=== PATIENT | female | born 1950 | race Caucasian/White ===

== ENCOUNTER → 2017-02-02 | Outpatient (CLI) | payer MEDICARE, MEDICAID ==
[~2017-02-02] MED LIST: ASCO500C2 PO; ASPI-496 PO; CALC0.254 PO; DOCU-30 PO; ERGO500017 PO; ESOM40CA PO; FAMO40TA4 PO; FURO20TA3 PO; HYDR2TAB13 PO; LEVO137T22 PO; LIOT5TAB3 PO; LORA10TA62 PO; METH500T97 PO; MONT10TA9 PO; OMEP-110 PO; ONDA4TAB10 PO; OXYC10TA32 PO; OXYC10TA6 PO; OXYC15TA PO; PANT20TA3 PO; POTA20TA91 PO; PROM25TA10 PO; RIVA15TA PO; SLOW MAG PO; VERA360C2 PO; VITA400C40 PO
[2017-02-02 12:11] LABS: HEMOGLOBIN 13.2 g/dL (11.7-16.4)
[2017-02-02 12:25] LABS: ASPARTATE AMINO TRANSFERASE 13 U/L (15-37); BLOOD UREA NITROGEN 15 mg/dL (7-18)
== END | disposition home or self-care (01) ==
LOC: STAR 10:08
PROVIDERS: ATTEND Orthopaedic Surgery
DX: Z01.818 Encounter for other preprocedural examination (principal); M17.12 Unilateral primary osteoarthritis, left knee
CPT/HCPCS: 36415; 80053; 81003; 85025; 87081; 93005

== ENCOUNTER 2017-02-14 06:42 | Inpatient (IN) | payer MEDICARE, MEDICAID ==
[2017-02-02 10:58] VITALS: BP 142/66
[~2017-02-14] VITALS: Ht 160 cm; Wt 78.3 kg
[2017-02-14] MEDS ORDERED: ROPIvacaine/PF 0.2%, 20 ML ONE (06:45)
[2017-02-14] MEDS ORDERED: KETOROLAC 60 MG/2 ML ONE (06:45)
[2017-02-14] MEDS ORDERED: TRANEXAMIC ACID 100 MG/ML, 10ML ONE (06:45)
[2017-02-14] MEDS ORDERED: SODIUM CHLORIDE 0.9% 50 ML ONE (06:45)
[2017-02-14] MEDS ORDERED: EPINEPHRINE 1 MG/ML, 1ML ONE (06:45)
[2017-02-14] MEDS ORDERED: FENTANYL PF 250 MCG/5ML ONE (07:48)
[2017-02-14] MEDS ORDERED: MIDAZOLAM 1 MG/ML, 2ML ONE (07:48)
[2017-02-14] MEDS ORDERED: BUPIVACAINE/PF-EPI 0.5% 1:200K ONE (08:44)
[2017-02-14] MEDS ORDERED: CEFAZOLIN 1,000 MG ONE (09:10)
[2017-02-14] MEDS ORDERED: EPHEDRINE 50 MG/ML, 1ML ONE (09:10)
[2017-02-14] MEDS ORDERED: LACTATED RINGERS 1,000 ML IV SCH (10:00)
[2017-02-14] MEDS ORDERED: ACETAMINOPHEN 325 MG TABLET PO PRN (11:00)
[2017-02-14] MEDS ORDERED: METOCLOPRAMIDE 5 MG/ML, 2ML IV PRN (11:00)
[2017-02-14] MEDS ORDERED: OXYcodone 5 MG/5 ML ORAL.SOL UDC PO PRN (11:00)
[2017-02-14] MEDS ORDERED: ONDANSETRON 2MG/ML, 2ML IVPush PRN (11:00)
[2017-02-14] MEDS ORDERED: LABETALOL 5MG/ML, 20ML IV PRN (11:00)
[2017-02-14] MEDS ORDERED: OXYcodone IR 5MG TABLET PO PRN (11:30)
[2017-02-14] MEDS ORDERED: ALUMINUM/MAG/SIMETHICONE 30 ML UDC PO PRN (11:30)
[2017-02-14] MEDS ORDERED: SCOPOLAMINE PATCH, 1.5MG PATCH.TD72 TD PRN (11:30)
[2017-02-14] MEDS ORDERED: DIPHENHYDRAMINE 50 MG CAPSULE PO PRN (11:30)
[2017-02-14] MEDS ORDERED: TRANEXAMIC ACID 2,000 MG in SODIUM CHLORIDE 0.9% 100 ML IVPB ONE (11:30)
[2017-02-14] MEDS ORDERED: BISACODYL 10 MG SUPP PR PRN (11:30)
[2017-02-14] MEDS ORDERED: SENNA/DOCUSATE TABLET PO PRN (11:30)
[2017-02-14] MEDS ORDERED: PROMETHAZINE 12.5 MG SUPP PR PRN (11:30)
[2017-02-14] MEDS ORDERED: SCOPOLAMINE PATCH, 1.5MG PATCH.TD72 TD SCH (11:30)
[2017-02-14] MEDS ORDERED: MAGNESIUM HYDROXIDE 8%, 30ML UDC PO PRN (11:30)
[2017-02-14] MEDS: OXYcodone IR 5MG TABLET PO SCH ×4 (11:30→23:30)
[2017-02-14] MEDS ORDERED: DIAZEPAM 5 MG TABLET PO PRN (11:30)
[2017-02-14] MEDS ORDERED: ZOLPIDEM 5MG TABLET PO PRN (11:30)
[2017-02-14] MEDS: ACETAMINOPHEN 650 MG/20.3 ML UDC PO SCH ×4 (11:30→23:30)
[2017-02-14] MEDS ORDERED: ONDANSETRON 4 MG TABLET PO PRN (11:30)
[2017-02-14] MEDS ORDERED: KETOROLAC 30 MG/1 ML ONE (11:41)
[2017-02-14] MEDS ORDERED: ACETAMINOPHEN 325 MG TABLET ONE (11:41)
[2017-02-14] MEDS ORDERED: FENTANYL PF 100 MCG/2ML ONE ×2 (11:41→13:15)
[2017-02-14] MEDS ORDERED: ONDANSETRON 2MG/ML, 2ML ONE (11:41)
[2017-02-14] MEDS ORDERED: OXYcodone 5 MG/5 ML ORAL.SOL UDC ONE (11:42)
[2017-02-14] MEDS: FENTANYL PF 100 MCG/2ML IV PRN ×3 (11:51→13:26)
[2017-02-14] MEDS ORDERED: METOCLOPRAMIDE 5 MG/ML, 2ML ONE (11:58)
[2017-02-14] MEDS ORDERED: hydrALAzine 20 MG/ML, 1ML ONE (12:02)
[2017-02-14] MEDS: hydrALAzine 20 MG/ML, 1ML IV PRN ×2 (12:06→12:32)
[2017-02-14] MEDS ORDERED: HYDROmorphone 2 MG/ML, 1ML ONE (12:50)
[2017-02-14] MEDS: HYDROmorphone 1 MG/ML, 1ML IV PRN ×3 (12:52→21:18)
[2017-02-14 13:50] VITALS: BP_SYST 164; BP_SYST 167; BP_DIAS 73; BP_DIAS 77
[2017-02-14] MEDS: PROMETHAZINE 25 MG/ML, 1ML IM PRN ×2 (14:14→19:19)
[2017-02-14] MEDS: SODIUM CHLORIDE 0.9% 1,000 ML IV SCH ×2 (14:17→21:32)
[2017-02-14] MEDS: TAMSULOSIN 0.4 MG CAP.ER.24H PO SCH (14:39)
[2017-02-14] MEDS: CEFAZOLIN PMX 2GM/50ML 50 ML IVPB SCH (18:21)
[2017-02-14 20:50] VITALS: BP 150/68
[2017-02-14] MEDS: ONDANSETRON 2MG/ML, 2ML IV PRN (21:16)
[2017-02-14] MEDS: DOCUSATE 100 MG CAPSULE PO SCH (21:32)
[2017-02-14] MEDS: PREGABALIN 75 MG CAPSULE PO SCH (21:32)
[2017-02-15] MEDS: HYDROmorphone 1 MG/ML, 1ML IV PRN ×2 (00:44→05:12)
[2017-02-15] MEDS: PROMETHAZINE 25 MG/ML, 1ML IM PRN ×4 (00:53→23:57)
[2017-02-15 02:00] VITALS: BP 152/78
[2017-02-15] MEDS: CEFAZOLIN PMX 2GM/50ML 50 ML IVPB SCH (02:31)
[2017-02-15] MEDS: OXYcodone IR 5MG TABLET PO SCH ×6 (03:30→23:06)
[2017-02-15] MEDS: ACETAMINOPHEN 650 MG/20.3 ML UDC PO SCH ×5 (03:30→20:45)
[2017-02-15 04:15] VITALS: BP 147/77
[2017-02-15] MEDS: ONDANSETRON 2MG/ML, 2ML IV PRN (05:12)
[2017-02-15] MEDS: SODIUM CHLORIDE 0.9% 1,000 ML IV SCH ×4 (05:12→23:56)
[2017-02-15] MEDS ORDERED: DEXAMETHASONE 4 MG/ML, 1ML IVPush SCH (06:00)
[2017-02-15] MEDS ORDERED: SODIUM CHLORIDE 0.9% 1,000ML IVBOLUS ONE (08:00)
[2017-02-15 09:00] VITALS: BP 152/78
[2017-02-15] MEDS: RIVAROXABAN 10 MG TABLET PO SCH (09:07)
[2017-02-15] MEDS: PREGABALIN 75 MG CAPSULE PO SCH ×2 (10:13→21:05)
[2017-02-15] MEDS: MULTIVITAMINS/MINERALS TABLET PO SCH (10:13)
[2017-02-15] MEDS: TAMSULOSIN 0.4 MG CAP.ER.24H PO SCH (10:13)
[2017-02-15] MEDS: DOCUSATE 100 MG CAPSULE PO SCH ×2 (10:13→21:05)
[2017-02-15] MEDS: KETOROLAC 30 MG/1 ML IV SCH ×2 (11:42→20:45)
[2017-02-15 15:59] VITALS: BP 143/63
[2017-02-15 20:30] VITALS: BP 150/72
[2017-02-16] MEDS: ACETAMINOPHEN 650 MG/20.3 ML UDC PO SCH ×4 (00:45→12:19)
[2017-02-16 01:14] VITALS: BP 138/52
[2017-02-16] MEDS: OXYcodone IR 5MG TABLET PO SCH ×5 (03:06→22:57)
[2017-02-16] MEDS: ONDANSETRON 2MG/ML, 2ML IV PRN ×3 (03:37→16:14)
[2017-02-16] MEDS: KETOROLAC 30 MG/1 ML IV SCH ×3 (04:48→23:16)
[2017-02-16] MEDS: PROMETHAZINE 25 MG/ML, 1ML IM PRN (05:59)
[2017-02-16 06:37] VITALS: BP 175/90
[2017-02-16] MEDS: SODIUM CHLORIDE 0.9% 1,000 ML IV SCH ×3 (07:10→19:40)
[2017-02-16] MEDS: METOCLOPRAMIDE 5 MG/ML, 2ML IVPush PRN ×2 (07:59→14:47)
[2017-02-16 09:58] LABS: ASPARTATE AMINO TRANSFERASE 20 U/L (15-37); BLOOD UREA NITROGEN 17 mg/dL (7-18)
[2017-02-16] MEDS: DOCUSATE 100 MG CAPSULE PO SCH ×2 (10:15→22:57)
[2017-02-16] MEDS: RIVAROXABAN 10 MG TABLET PO SCH (10:15)
[2017-02-16] MEDS: MULTIVITAMINS/MINERALS TABLET PO SCH (10:15)
[2017-02-16] MEDS: TAMSULOSIN 0.4 MG CAP.ER.24H PO SCH (10:15)
[2017-02-16] MEDS: PREGABALIN 75 MG CAPSULE PO SCH ×2 (10:15→22:57)
[2017-02-16 12:31] VITALS: BP 155/77
[2017-02-16] MEDS ORDERED: ALUMINUM/MAG/SIMETHICONE 30 ML UDC PO PRN (13:30)
[2017-02-16] MEDS ORDERED: ACETAMINOPHEN 650 MG/20.3 ML UDC PO PRN (13:30)
[2017-02-16] MEDS ORDERED: ONDANSETRON ODT 4 MG PO PRN (13:30)
[2017-02-16] MEDS ORDERED: PROMETHAZINE 25 MG/ML, 1ML IM PRN (13:30)
[2017-02-16] MEDS ORDERED: SENNA/DOCUSATE TABLET PO PRN (13:30)
[2017-02-16] MEDS ORDERED: BISACODYL 10 MG SUPP PR PRN (13:30)
[2017-02-16] MEDS ORDERED: DIPHENHYDRAMINE 50 MG CAPSULE PO PRN (13:30)
[2017-02-16] MEDS: SCOPOLAMINE PATCH, 1.5MG PATCH.TD72 TD SCH (13:30)
[2017-02-16] MEDS ORDERED: ZOLPIDEM 5MG TABLET PO PRN (13:30)
[2017-02-16] MEDS ORDERED: MAGNESIUM HYDROXIDE 8%, 30ML UDC PO PRN (13:30)
[2017-02-16] MEDS ORDERED: PROMETHAZINE 12.5 MG SUPP PR PRN (13:30)
[2017-02-16] MEDS ORDERED: DIAZEPAM 5 MG TABLET PO PRN (13:30)
[2017-02-16] MEDS ORDERED: Tramadol Hcl PO (13:32)
[2017-02-16] MEDS ORDERED: RIVA10TA PO (13:32)
[2017-02-16] MEDS ORDERED: ONDA-39 PO (13:32)
[2017-02-16] MEDS ORDERED: OXYC5TAB3 PO (13:32)
[2017-02-16] MEDS: D5%-0.45% NACL 1,000 ML IV SCH ×2 (14:53→23:19)
[2017-02-16] MEDS ORDERED: OMNIPAQUE 350 MG/ML, 100ML BOTTLE ONE (19:08)
[2017-02-16 20:00] VITALS: BP 148/82
[2017-02-16] MEDS: SODIUM CHLORIDE FLUSH 10ML SYR IVF SCH (21:40)
[2017-02-16] MEDS: HYDROmorphone 1 MG/ML, 1ML IV PRN (23:16)
[2017-02-16] MEDS ORDERED: BENZOCAINE AEROSOL SPRAY 20%, 60ML TP ONE (23:30)
[2017-02-17 01:40] VITALS: BP 142/86
[2017-02-17] MEDS: SODIUM CHLORIDE 0.9% 1,000 ML IV SCH ×4 (02:24→22:20)
[2017-02-17] MEDS: OXYcodone IR 5MG TABLET PO SCH ×6 (02:24→22:00)
[2017-02-17] MEDS: FAMOTIDINE 20 MG/2 ML IVPush SCH ×3 (02:24→20:34)
[2017-02-17 05:56] LABS: BLOOD UREA NITROGEN 20 mg/dL (7-18)
[2017-02-17] MEDS ORDERED: DEXAMETHASONE 4 MG/ML, 1ML IVPush SCH (06:00)
[2017-02-17] MEDS: D5%-0.45% NACL 1,000 ML IV SCH ×2 (06:13→22:27)
[2017-02-17 07:32] VITALS: BP 121/74
[2017-02-17] MEDS ORDERED: POTASSIUM CHLORIDE 40 MEQ in SODIUM CHLORIDE 0.9% 500 ML IV ONE (08:00)
[2017-02-17] MEDS: DOCUSATE 100 MG CAPSULE PO SCH ×2 (09:11→21:00)
[2017-02-17] MEDS: MULTIVITAMINS/MINERALS TABLET PO SCH (09:12)
[2017-02-17] MEDS: PREGABALIN 75 MG CAPSULE PO SCH ×2 (09:12→21:00)
[2017-02-17] MEDS: TAMSULOSIN 0.4 MG CAP.ER.24H PO SCH (09:12)
[2017-02-17] MEDS: SODIUM CHLORIDE FLUSH 10ML SYR IVF SCH ×2 (09:49→20:53)
[2017-02-17] MEDS: HYDROmorphone 1 MG/ML, 1ML IV PRN ×5 (10:41→23:30)
[2017-02-17] MEDS ORDERED: SCOPOLAMINE PATCH, 1.5MG PATCH.TD72 TD PRN (11:30)
[2017-02-17] MEDS ORDERED: ENOXAPARIN 60 MG/0.6 ML SQ SCH (13:00)
[2017-02-17 14:19] VITALS: BP 109/75
[2017-02-17] MEDS: DIAZEPAM 5 MG/ML, 2ML IVPush PRN (15:38)
[2017-02-17 20:04] VITALS: BP 125/65
[2017-02-18] MEDS: OXYcodone IR 5MG TABLET PO SCH ×6 (01:31→22:00)
[2017-02-18] MEDS: ENOXAPARIN 30 MG/0.3 ML SQ SCH ×2 (01:42→13:31)
[2017-02-18] MEDS: HYDROmorphone 1 MG/ML, 1ML IV PRN ×5 (01:42→20:09)
[2017-02-18 02:10] VITALS: BP 132/59
[2017-02-18 06:14] LABS: BLOOD UREA NITROGEN 14 mg/dL (7-18)
[2017-02-18] MEDS: SODIUM CHLORIDE FLUSH 10ML SYR IVF SCH ×2 (07:41→20:13)
[2017-02-18] MEDS: TAMSULOSIN 0.4 MG CAP.ER.24H PO SCH (07:42)
[2017-02-18] MEDS: PREGABALIN 75 MG CAPSULE PO SCH ×2 (07:42→21:00)
[2017-02-18] MEDS: DOCUSATE 100 MG CAPSULE PO SCH ×2 (07:42→21:00)
[2017-02-18] MEDS: MULTIVITAMINS/MINERALS TABLET PO SCH (07:42)
[2017-02-18 07:45] VITALS: BP 128/80
[2017-02-18] MEDS: D5%-0.45% NACL 1,000 ML IV SCH ×2 (07:50→20:17)
[2017-02-18] MEDS: FAMOTIDINE 20 MG/2 ML IVPush SCH ×2 (08:16→21:59)
[2017-02-18] MEDS ORDERED: POTASSIUM CHLORIDE 40 MEQ in SODIUM CHLORIDE 0.9% 500 ML IV ONE (11:00)
[2017-02-18] MEDS ORDERED: BISACODYL 10 MG SUPP PR ONE (11:30)
[2017-02-18] MEDS ORDERED: METOCLOPRAMIDE 5 MG/ML, 2ML IVPush PRN (11:30)
[2017-02-18 14:35] VITALS: BP 126/74
[2017-02-18 19:51] VITALS: BP 143/76
[2017-02-19] MEDS: ENOXAPARIN 30 MG/0.3 ML SQ SCH ×3 (01:28→23:06)
[2017-02-19] MEDS: DIAZEPAM 5 MG/ML, 2ML IVPush PRN ×2 (01:38→09:28)
[2017-02-19] MEDS: OXYcodone IR 5MG TABLET PO SCH ×7 (01:40→22:00)
[2017-02-19] MEDS: HYDROmorphone 1 MG/ML, 1ML IV PRN ×5 (03:41→22:53)
[2017-02-19] MEDS: D5%-0.45% NACL 1,000 ML IV SCH ×3 (03:44→22:57)
[2017-02-19 04:34] VITALS: BP 141/70
[2017-02-19 05:27] LABS: BLOOD UREA NITROGEN 10 mg/dL (7-18)
[2017-02-19 06:53] VITALS: BP 176/88
[2017-02-19] MEDS: MULTIVITAMINS/MINERALS TABLET PO SCH (07:52)
[2017-02-19] MEDS: TAMSULOSIN 0.4 MG CAP.ER.24H PO SCH (07:52)
[2017-02-19] MEDS: DOCUSATE 100 MG CAPSULE PO SCH ×2 (07:52→23:04)
[2017-02-19] MEDS: PREGABALIN 75 MG CAPSULE PO SCH ×2 (07:52→23:04)
[2017-02-19] MEDS: SODIUM CHLORIDE FLUSH 10ML SYR IVF SCH ×2 (08:16→22:59)
[2017-02-19] MEDS: FAMOTIDINE 20 MG/2 ML IVPush SCH ×2 (09:28→22:59)
[2017-02-19 09:30] VITALS: BP 157/73
[2017-02-19] MEDS ORDERED: POTASSIUM CHLORIDE 40 MEQ in SODIUM CHLORIDE 0.9% 500 ML IV ONE (10:00)
[2017-02-19] MEDS: METOCLOPRAMIDE 5 MG/ML, 2ML IVPush SCH ×3 (11:40→22:57)
[2017-02-19] MEDS: POLYETHYLENE GLYCOL 17 GM PACKET NG SCH (11:40)
[2017-02-19] MEDS: SCOPOLAMINE PATCH, 1.5MG PATCH.TD72 TD SCH (13:30)
[2017-02-19 13:40] VITALS: BP 157/80
[2017-02-19 21:52] VITALS: BP 153/79
[2017-02-20] MEDS: OXYcodone IR 5MG TABLET PO SCH ×6 (01:46→22:00)
[2017-02-20] MEDS: HYDROmorphone 1 MG/ML, 1ML IV PRN ×6 (01:55→20:47)
[2017-02-20] MEDS: METOCLOPRAMIDE 5 MG/ML, 2ML IVPush SCH ×4 (04:35→23:25)
[2017-02-20 04:50] VITALS: BP 123/66
[2017-02-20 04:53] LABS: BLOOD UREA NITROGEN 6 mg/dL (7-18)
[2017-02-20] MEDS: D5%-0.45% NACL 1,000 ML IV SCH ×2 (06:44→17:57)
[2017-02-20 06:48] VITALS: BP 143/70
[2017-02-20] MEDS: POLYETHYLENE GLYCOL 17 GM PACKET NG SCH (09:03)
[2017-02-20] MEDS: FAMOTIDINE 20 MG/2 ML IVPush SCH ×2 (09:03→20:46)
[2017-02-20] MEDS: SODIUM CHLORIDE FLUSH 10ML SYR IVF SCH ×2 (09:03→20:52)
[2017-02-20] MEDS: DOCUSATE 100 MG CAPSULE PO SCH ×2 (09:05→20:48)
[2017-02-20] MEDS: PREGABALIN 75 MG CAPSULE PO SCH ×2 (09:05→20:46)
[2017-02-20] MEDS: TAMSULOSIN 0.4 MG CAP.ER.24H PO SCH (09:05)
[2017-02-20] MEDS: MULTIVITAMINS/MINERALS TABLET PO SCH (09:22)
[2017-02-20] MEDS: ENOXAPARIN 30 MG/0.3 ML SQ SCH ×2 (11:43→23:27)
[2017-02-20 13:42] VITALS: BP 139/70
[2017-02-20 20:02] VITALS: BP 123/67
[2017-02-21] MEDS: HYDROmorphone 1 MG/ML, 1ML IV PRN ×8 (00:42→22:09)
[2017-02-21 00:50] VITALS: BP 129/76
[2017-02-21] MEDS: OXYcodone IR 5MG TABLET PO SCH ×6 (02:00→22:00)
[2017-02-21] MEDS: D5%-0.45% NACL 1,000 ML IV SCH ×2 (03:49→16:17)
[2017-02-21 05:44] LABS: BLOOD UREA NITROGEN 4 mg/dL (7-18)
[2017-02-21] MEDS: METOCLOPRAMIDE 5 MG/ML, 2ML IVPush SCH ×3 (05:44→19:51)
[2017-02-21] MEDS: FAMOTIDINE 20 MG/2 ML IVPush SCH ×2 (07:24→21:02)
[2017-02-21] MEDS: SODIUM CHLORIDE FLUSH 10ML SYR IVF SCH ×2 (07:24→21:03)
[2017-02-21 08:37] VITALS: BP 106/54
[2017-02-21] MEDS: POLYETHYLENE GLYCOL 17 GM PACKET NG SCH (09:00)
[2017-02-21] MEDS: DOCUSATE 100 MG CAPSULE PO SCH ×2 (09:37→21:00)
[2017-02-21] MEDS: TAMSULOSIN 0.4 MG CAP.ER.24H PO SCH (09:38)
[2017-02-21] MEDS: MULTIVITAMINS/MINERALS TABLET PO SCH (09:38)
[2017-02-21] MEDS: PREGABALIN 75 MG CAPSULE PO SCH ×2 (09:38→21:02)
[2017-02-21] MEDS: ONDANSETRON 2MG/ML, 2ML IV PRN (10:19)
[2017-02-21] MEDS: ENOXAPARIN 30 MG/0.3 ML SQ SCH ×2 (11:28→23:57)
[2017-02-21 13:35] VITALS: BP 138/79
[2017-02-21 19:32] VITALS: BP 141/84
[2017-02-22] MEDS: OXYcodone IR 5MG TABLET PO SCH ×6 (02:00→21:42)
[2017-02-22] MEDS: METOCLOPRAMIDE 5 MG/ML, 2ML IVPush SCH ×4 (02:13→21:50)
[2017-02-22 03:25] VITALS: BP 130/84
[2017-02-22] MEDS: HYDROmorphone 1 MG/ML, 1ML IV PRN ×4 (05:16→21:38)
[2017-02-22 05:21] LABS: BLOOD UREA NITROGEN 2 mg/dL (7-18)
[2017-02-22] MEDS: D5%-0.45% NACL 1,000 ML IV SCH (05:22)
[2017-02-22] MEDS: FAMOTIDINE 20 MG/2 ML IVPush SCH ×2 (08:01→21:50)
[2017-02-22] MEDS: MULTIVITAMINS/MINERALS TABLET PO SCH (09:00)
[2017-02-22] MEDS: TAMSULOSIN 0.4 MG CAP.ER.24H PO SCH (09:00)
[2017-02-22] MEDS: PREGABALIN 75 MG CAPSULE PO SCH ×2 (09:00→21:00)
[2017-02-22] MEDS: SODIUM CHLORIDE FLUSH 10ML SYR IVF SCH ×2 (09:00→21:38)
[2017-02-22] MEDS: POLYETHYLENE GLYCOL 17 GM PACKET NG SCH (09:00)
[2017-02-22] MEDS: DOCUSATE 100 MG CAPSULE PO SCH ×2 (09:00→21:00)
[2017-02-22 09:34] VITALS: BP 117/70
[2017-02-22] MEDS: ENOXAPARIN 30 MG/0.3 ML SQ SCH (12:11)
[2017-02-22] MEDS: SCOPOLAMINE PATCH, 1.5MG PATCH.TD72 TD SCH (13:30)
[2017-02-22 15:04] VITALS: BP 132/66
[2017-02-22] MEDS ORDERED: NEOSPORIN OINT, 15GM TP PRN ×2 (15:30→15:37)
[2017-02-22] MEDS: NEOSPORIN OINT, 15GM TP PRN (18:05)
[2017-02-22 18:31] VITALS: BP 151/81
[2017-02-23] MEDS: ENOXAPARIN 30 MG/0.3 ML SQ SCH ×3 (00:01→23:45)
[2017-02-23] MEDS: HYDROmorphone 1 MG/ML, 1ML IV PRN ×3 (01:08→07:44)
[2017-02-23 01:15] VITALS: BP 152/77
[2017-02-23] MEDS: OXYcodone IR 5MG TABLET PO SCH ×3 (02:00→10:00)
[2017-02-23] MEDS: METOCLOPRAMIDE 5 MG/ML, 2ML IVPush SCH ×4 (02:23→20:44)
[2017-02-23] MEDS: POLYETHYLENE GLYCOL 17 GM PACKET NG SCH (07:36)
[2017-02-23] MEDS: DOCUSATE 100 MG CAPSULE PO SCH ×2 (07:36→20:48)
[2017-02-23] MEDS: MULTIVITAMINS/MINERALS TABLET PO SCH (07:37)
[2017-02-23] MEDS: PREGABALIN 75 MG CAPSULE PO SCH ×2 (07:37→20:48)
[2017-02-23] MEDS: TAMSULOSIN 0.4 MG CAP.ER.24H PO SCH (07:37)
[2017-02-23] MEDS: FAMOTIDINE 20 MG/2 ML IVPush SCH ×2 (07:37→20:44)
[2017-02-23] MEDS: SODIUM CHLORIDE FLUSH 10ML SYR IVF SCH ×2 (07:38→20:44)
[2017-02-23 09:58] VITALS: BP 141/87
[2017-02-23] MEDS: NEOSPORIN OINT, 15GM TP PRN (14:44)
[2017-02-23 14:52] VITALS: BP 128/52
[2017-02-23] MEDS ORDERED: HYDROmorphone 1 MG/ML, 1ML IV PRN (15:30)
[2017-02-23] MEDS: OXYcodone IR 5MG TABLET PO PRN ×2 (18:30→22:59)
[2017-02-23 18:55] VITALS: BP 151/80
[2017-02-24] MEDS: METOCLOPRAMIDE 5 MG/ML, 2ML IVPush SCH ×2 (03:39→09:01)
[2017-02-24 03:52] VITALS: BP 154/75
[2017-02-24] MEDS: OXYcodone IR 5MG TABLET PO PRN ×3 (04:00→13:11)
[2017-02-24 08:36] VITALS: BP 104/72
[2017-02-24] MEDS: POLYETHYLENE GLYCOL 17 GM PACKET NG SCH (09:00)
[2017-02-24] MEDS: DOCUSATE 100 MG CAPSULE PO SCH (09:01)
[2017-02-24] MEDS: PREGABALIN 75 MG CAPSULE PO SCH (09:01)
[2017-02-24] MEDS: MULTIVITAMINS/MINERALS TABLET PO SCH (09:01)
[2017-02-24] MEDS: SODIUM CHLORIDE FLUSH 10ML SYR IVF SCH (09:01)
[2017-02-24] MEDS: FAMOTIDINE 20 MG/2 ML IVPush SCH (09:01)
[2017-02-24] MEDS: TAMSULOSIN 0.4 MG CAP.ER.24H PO SCH (09:01)
[2017-02-24] MEDS ORDERED: METOCLOPRAMIDE 10MG TABLET PO SCH (11:00)
[2017-02-24] MEDS: ENOXAPARIN 30 MG/0.3 ML SQ SCH (11:53)
[2017-02-24 12:33] VITALS: BP 157/78
[2017-02-24] MEDS ORDERED: OxyconTIN ER 10 MG TAB.ER PO SCH (15:30)
[2017-02-24] MEDS ORDERED: OXYC30TA PO (15:45)
[2017-02-24] MEDS ORDERED: OXYC10TA32 PO (15:45)
[2017-02-24] MEDS ORDERED: OXYcodone IR 5MG TABLET PO PRN (17:30)
== END 2017-02-24 16:34 | DRG 470 ==
LOC: ORIP 06:42 → MERGE 09:30 → 4NOR 13:45
PROVIDERS: ADMIT Orthopaedic Surgery; ATTEND Orthopaedic Surgery
PROC: 02HV33Z Insertion of Infusion Device into Superior Vena Cava, Percutaneous Approach (ICD-10-PCS; 2017-02-14)
PROC: 3E0T3CZ (ICD-10-PCS; 2017-02-14)
PROC: 0SRD0J9 Replacement of Left Knee Joint with Synthetic Substitute, Cemented, Open Approach (ICD-10-PCS; principal; 2017-02-14 09:30)
DX: M17.12 Unilateral primary osteoarthritis, left knee (principal); K56.0 Paralytic ileus; J96.10 Chronic respiratory failure, unspecified whether with hypoxia or hypercapnia; Z68.42 Body mass index [BMI] 45.0-49.9, adult; Y92.89 Other specified places as the place of occurrence of the external cause; E87.6 Hypokalemia; D64.9 Anemia, unspecified; E03.9 Hypothyroidism, unspecified; K21.9 Gastro-esophageal reflux disease without esophagitis; K31.84 Gastroparesis; G89.29 Other chronic pain; Y82.8 Other medical devices associated with adverse incidents; M21.162 Varus deformity, not elsewhere classified, left knee; E66.9 Obesity, unspecified; I10 Essential (primary) hypertension; Z96.651 Presence of right artificial knee joint; Z99.81 Dependence on supplemental oxygen; Z88.5 Allergy status to narcotic agent; Z88.0 Allergy status to penicillin; Z88.8 Allergy status to other drugs, medicaments and biological substances; Z91.048 Other nonmedicinal substance allergy status; Z90.49 Acquired absence of other specified parts of digestive tract; T40.605A Adverse effect of unspecified narcotics, initial encounter
CPT/HCPCS: 36415; 71010; 74000; 74020; 74177; 74245; 80048; 80053; 83605; 83735; 84145; 85014; 85018; 85025; C1713; J0171; J0690; J1100; J1170; J1650; J1885; J2250; J2405; J2550; J2795; J3010; J3360; J3480; Q0162; Q9967; C1776; J0360; J2765; J7030; J7040; S0028

== ENCOUNTER → 2017-10-04 | Outpatient (CLI) | payer MEDICARE, MEDICAID ==
[~2017-10-04] MED LIST changes: +DOCU-131 PO; -DOCU-30 PO; -HYDR2TAB13 PO; +HYDR2TAB29 PO; -LEVO137T22 PO; +LEVO137T25 PO; +ONDA4TAB12 PO; -OXYC10TA32 PO; +OXYC10TA47 PO; +OXYC30TA PO; +OXYC5TAB3 PO; +RIVA10TA PO; +Tramadol Hcl PO; -VITA400C40 PO; +VITA400C43 PO
== END | disposition home or self-care (01) ==
LOC: CFH 12:29
PROVIDERS: ATTEND Internal Medicine
DX: R22.1 Localized swelling, mass and lump, neck (principal); E89.0 Postprocedural hypothyroidism
CPT/HCPCS: 76536

== ENCOUNTER 2018-09-27 13:51 | Inpatient (IN) | payer MEDICARE, MEDICAID ==
[~2018-09-27] VITALS: Ht 157.5 cm; Wt 123.7 kg
[2018-09-27] MEDS ORDERED: ASPIRIN 81 MG TABLET CHEW ONE (14:18)
[2018-09-27] MEDS ORDERED: SODIUM CHLORIDE FLUSH 10ML SYR IVF ONE ×2 (14:30)
[2018-09-27] MEDS ORDERED: ASPIRIN 81 MG TABLET CHEW PO ONE (14:30)
[2018-09-27] MEDS ORDERED: ASPI-496 PO (14:49)
[2018-09-27] MEDS ORDERED: ESOM40CA PO (14:54)
[2018-09-27 15:02] LABS: BASOPHILS # (AUTO) 0.05 x10^3/uL (0-0.1); BASOPHILS % (AUTO) 1 % (0-1); EOSINOPHILS # (AUTO) 0.13 x10^3/uL (0-0.4); EOSINOPHILS % (AUTO) 2 % (1-7); LYMPHOCYTES # (AUTO) 1.52 x10^3/uL (1-3.4); LYMPHOCYTES % (AUTO) 27 % (22-44); MD NO; MEAN CORPUSCULAR HEMOGLOBIN 31.9 pg (27.0-34.8); MEAN CORPUSCULAR HGB CONC 34.1 g/dL (32.4-35.8); MEAN CORPUSCULAR VOLUME 93.3 fL (80-100); MEAN PLATELET VOLUME 7.2 fL (7.4-10.4); MONOCYTES # (AUTO) 0.69 x10^3/uL (0.2-0.8); MONOCYTES % (AUTO) 12 % (2-9); NEUTROPHILS # (AUTO) 3.27 x10^3/uL (1.8-6.8); NEUTROPHILS % (AUTO) 58 % (42-75); PLATELET COUNT 297 x10^3/uL (130-400); RED BLOOD COUNT 4.44 x10^6/uL (3.82-5.3); RED CELL DISTRIBUTION WIDTH 13.3 % (9.6-15.2)
[2018-09-27 15:15] LABS: ALBUMIN 3.9 g/dL (3.4-5.0); ANION GAP 10 mmol/L (5-15); CALCIUM 9.1 mg/dL (8.5-10.1); CHLORIDE 108 mmol/L (98-107)
[2018-09-27 15:19] LABS: TROPONIN I < 0.015 ng/mL (0.000-0.045)
[2018-09-27 15:25] LABS: THYROID STIMULATING HORMONE 0.372 mIU/L (0.358-3.740)
[2018-09-27 15:32] LABS: D-DIMER 1.57 ug/mlFEU (0.00-0.52); PROTHROMBIN TIME 10.6 Seconds (9.6-11.5)
[2018-09-27] MEDS ORDERED: POTASSIUM CHLORIDE 20 MEQ TAB.ER.PRT PO ONE ×3 (16:00→18:30)
[2018-09-27] MEDS ORDERED: POTASSIUM CHLORIDE 20 MEQ TAB.ER.PRT ONE (16:13)
[2018-09-27] MEDS ORDERED: FUROSEMIDE 40 MG/4 ML IV ONE (16:30)
[2018-09-27] MEDS ORDERED: FUROSEMIDE 40 MG/4 ML ONE (16:41)
[2018-09-27] MEDS ORDERED: ONDANSETRON ODT 4 MG PO PRN (17:00)
[2018-09-27] MEDS ORDERED: BISACODYL 10 MG SUPP PR PRN (17:00)
[2018-09-27] MEDS ORDERED: ONDANSETRON 2MG/ML, 2ML IVPush PRN (17:00)
[2018-09-27] MEDS ORDERED: DOCUSATE 100 MG CAPSULE PO PRN (17:00)
[2018-09-27] MEDS ORDERED: hydrALAzine 20 MG/ML, 1ML IVPush PRN (17:00)
[2018-09-27] MEDS ORDERED: ENALAPRILAT 1.25 MG/ML, 2ML IVPush PRN (17:00)
[2018-09-27] MEDS ORDERED: OMNIPAQUE 350 MG/ML, 100ML BOTTLE ONE (17:01)
[2018-09-27 17:59] VITALS: BP 136/82
[2018-09-27] MEDS: ENOXAPARIN 40 MG/0.4 ML SQ SCH (18:03)
[2018-09-27 18:21] LABS: HEMOGLOBIN A1C 5.6 % (4.2-6.3)
[2018-09-27] MEDS: ACETAMINOPHEN 325 MG TABLET PO PRN ×2 (18:52→23:59)
[2018-09-27 19:23] VITALS: BP 133/73
[2018-09-27] MEDS: MONTELUKAST 10 MG TABLET PO SCH (20:16)
[2018-09-27] MEDS: OxyconTIN ER 10 MG TAB.ER PO SCH (20:16)
[2018-09-27] MEDS: METHOCARBAMOL 750 MG TABLET PO SCH (20:16)
[2018-09-27 21:36] LABS: TROPONIN I < 0.015 ng/mL (0.000-0.045)
[2018-09-28 01:21] VITALS: BP 124/74
[2018-09-28 03:23] LABS: BASOPHILS # (AUTO) 0.07 x10^3/uL (0-0.1); BASOPHILS % (AUTO) 1 % (0-1); EOSINOPHILS # (AUTO) 0.33 x10^3/uL (0-0.4); EOSINOPHILS % (AUTO) 5 % (1-7); LYMPHOCYTES # (AUTO) 2.05 x10^3/uL (1-3.4); LYMPHOCYTES % (AUTO) 32 % (22-44); MD NO; MEAN CORPUSCULAR HEMOGLOBIN 31.8 pg (27.0-34.8); MEAN CORPUSCULAR HGB CONC 33.9 g/dL (32.4-35.8); MEAN CORPUSCULAR VOLUME 93.7 fL (80-100); MEAN PLATELET VOLUME 7.1 fL (7.4-10.4); MONOCYTES # (AUTO) 0.84 x10^3/uL (0.2-0.8); MONOCYTES % (AUTO) 13 % (2-9); NEUTROPHILS # (AUTO) 3.04 x10^3/uL (1.8-6.8); NEUTROPHILS % (AUTO) 48 % (42-75); PLATELET COUNT 273 x10^3/uL (130-400); RED BLOOD COUNT 3.99 x10^6/uL (3.82-5.3); RED CELL DISTRIBUTION WIDTH 13.5 % (9.6-15.2)
[2018-09-28] MEDS: ACETAMINOPHEN 500 MG TABLET PO PRN (03:31)
[2018-09-28 03:32] LABS: ALBUMIN 3.1 g/dL (3.4-5.0); ANION GAP 11 mmol/L (5-15); CALCIUM 8.3 mg/dL (8.5-10.1); CHLORIDE 106 mmol/L (98-107)
[2018-09-28 03:35] LABS: ALANINE AMINOTRANSFERASE 20 U/L (12-78); ALKALINE PHOSPHATASE 78 U/L (45-117); BILIRUBIN,TOTAL 0.6 mg/dL (0.2-1.0); CHOL/HDL RATIO 2.6; CHOLESTEROL, TOTAL 153 mg/dL (140-239); CREATININE 1.01 mg/dL (0.55-1.02); HDL CHOL % 39 % (28-40); HDL CHOLESTEROL (DIRECT) 59 mg/dL (40-60); LDL CHOLESTEROL,CALCULATED 76 mg/dL (54-169); LDL/HDL RATIO 1.3 (0.5-3.0); TOTAL PROTEIN 6.7 g/dL (6.4-8.2); TRIGLYCERIDES 91 mg/dL (50-200); TROPONIN I < 0.015 ng/mL (0.000-0.045); VLDL CHOLESTEROL 18 mg/dL (0-25)
[2018-09-28 03:41] LABS: THYROID STIMULATING HORMONE 0.647 mIU/L (0.358-3.740)
[2018-09-28] MEDS ORDERED: ACETAMINOPHEN 500 MG TABLET PO PRN (05:00)
[2018-09-28 07:35] VITALS: BP 127/80
[2018-09-28] MEDS: FUROSEMIDE 20 MG/2 ML IV SCH ×2 (08:01→16:44)
[2018-09-28] MEDS: POTASSIUM CHLORIDE 20 MEQ TAB.ER.PRT PO SCH (08:02)
[2018-09-28] MEDS: LIOTHYRONINE 5 MCG TABLET PO SCH (08:02)
[2018-09-28] MEDS: OMEPRAZOLE 20 MG CAPSULE.DR PO SCH (08:02)
[2018-09-28] MEDS: ASPIRIN 81 MG TABLET CHEW PO SCH (08:02)
[2018-09-28] MEDS: OxyconTIN ER 10 MG TAB.ER PO SCH ×3 (08:02→20:39)
[2018-09-28] MEDS: SENNA/DOCUSATE TABLET PO SCH (08:03)
[2018-09-28] MEDS: FAMOTIDINE 40 MG TABLET PO SCH (08:03)
[2018-09-28] MEDS: METHOCARBAMOL 750 MG TABLET PO SCH ×3 (08:03→20:39)
[2018-09-28] MEDS: VERAPAMIL ER 180MG TABLET.ER PO SCH (08:03)
[2018-09-28] MEDS: LORATADINE 10 MG TABLET PO SCH (08:04)
[2018-09-28] MEDS: LEVOTHYROXINE 137 MCG TABLET PO SCH (08:04)
[2018-09-28] MEDS ORDERED: REGADENOSON 0.4 MG/5 ML SYRINGE ONE (08:23)
[2018-09-28 12:54] VITALS: BP 127/69
[2018-09-28 13:20] VITALS: BP 127/77
[2018-09-28] MEDS: ENOXAPARIN 40 MG/0.4 ML SQ SCH (16:44)
[2018-09-28 20:00] VITALS: BP 134/77
[2018-09-28] MEDS: MONTELUKAST 10 MG TABLET PO SCH (20:39)
[2018-09-29 01:40] VITALS: BP 130/70
[2018-09-29 05:09] LABS: BASOPHILS # (AUTO) 0.03 x10^3/uL (0-0.1); BASOPHILS % (AUTO) 1 % (0-1); EOSINOPHILS # (AUTO) 0.38 x10^3/uL (0-0.4); EOSINOPHILS % (AUTO) 6 % (1-7); LYMPHOCYTES % (AUTO) 26 % (22-44); MD NO; MEAN CORPUSCULAR HEMOGLOBIN 31.9 pg (27.0-34.8); MEAN CORPUSCULAR VOLUME 93.8 fL (80-100); MEAN PLATELET VOLUME 7.8 fL (7.4-10.4); MONOCYTES # (AUTO) 0.75 x10^3/uL (0.2-0.8); MONOCYTES % (AUTO) 12 % (2-9); NEUTROPHILS # (AUTO) 3.71 x10^3/uL (1.8-6.8); NEUTROPHILS % (AUTO) 56 % (42-75); PLATELET COUNT 233 x10^3/uL (130-400); RED CELL DISTRIBUTION WIDTH 13.4 % (9.6-15.2)
[2018-09-29 05:17] LABS: ALBUMIN 3.3 g/dL (3.4-5.0); ANION GAP 10 mmol/L (5-15); CALCIUM 8.3 mg/dL (8.5-10.1); CHLORIDE 104 mmol/L (98-107)
[2018-09-29 05:19] LABS: CREATININE 1.11 mg/dL (0.55-1.02)
[2018-09-29 06:47] VITALS: BP 126/68
[2018-09-29] MEDS ORDERED: FUROSEMIDE 20 MG TABLET PO SCH (08:00)
[2018-09-29] MEDS: LIOTHYRONINE 5 MCG TABLET PO SCH (08:37)
[2018-09-29] MEDS: FAMOTIDINE 40 MG TABLET PO SCH (08:37)
[2018-09-29] MEDS: METHOCARBAMOL 750 MG TABLET PO SCH (08:37)
[2018-09-29] MEDS: OMEPRAZOLE 20 MG CAPSULE.DR PO SCH (08:38)
[2018-09-29] MEDS: OxyconTIN ER 10 MG TAB.ER PO SCH (08:38)
[2018-09-29] MEDS: LEVOTHYROXINE 137 MCG TABLET PO SCH (08:38)
[2018-09-29] MEDS: VERAPAMIL ER 180MG TABLET.ER PO SCH (08:38)
[2018-09-29] MEDS: SENNA/DOCUSATE TABLET PO SCH (08:39)
[2018-09-29] MEDS: POTASSIUM CHLORIDE 20 MEQ TAB.ER.PRT PO SCH (08:39)
[2018-09-29] MEDS: ASPIRIN 81 MG TABLET CHEW PO SCH (08:39)
[2018-09-29] MEDS: LORATADINE 10 MG TABLET PO SCH (08:39)
[2018-09-29 12:44] VITALS: BP 152/69
[2018-09-29] MEDS ORDERED: ATOR20TA9 PO (13:54)
[2018-09-29] MEDS ORDERED: CARV3.1212 PO (13:54)
[2018-09-29] MEDS ORDERED: CARVEDILOL 3.125 MG TABLET PO SCH (14:00)
[2018-09-29] MEDS: ACETAMINOPHEN 500 MG TABLET PO PRN (14:55)
[2018-09-29] MEDS ORDERED: ATORVASTATIN 20 MG TABLET PO SCH (21:00)
== END 2018-09-29 15:55 | disposition home or self-care (01) | DRG 291 ==
LOC: ED 16:17 → EDIP 16:26 → 5SO 17:29
PROVIDERS: ADMIT Internal Medicine; ATTEND Internal Medicine
DX: I11.0 Hypertensive heart disease with heart failure (principal); I50.31 Acute diastolic (congestive) heart failure; Z68.42 Body mass index [BMI] 45.0-49.9, adult; E66.01 Morbid (severe) obesity due to excess calories; J45.909 Unspecified asthma, uncomplicated; K21.9 Gastro-esophageal reflux disease without esophagitis; R07.2 Precordial pain; E87.6 Hypokalemia; G47.30 Sleep apnea, unspecified; I25.10 Atherosclerotic heart disease of native coronary artery without angina pectoris; G89.29 Other chronic pain; Z90.710 Acquired absence of both cervix and uterus; Z96.653 Presence of artificial knee joint, bilateral; Z90.49 Acquired absence of other specified parts of digestive tract; Z86.718 Personal history of other venous thrombosis and embolism
CPT/HCPCS: 36415; 71045; 71275; 78452; 80048; 80053; 80061; 82040; 83036; 83735; 83880; 84100; 84443; 84484; 85025; 85379; 85610; 93005; 93017; 93306; 93970; 99285; G0378; J1650; J1940; J2405; J2785; Q0162; Q9967; A9502; C9898

== ENCOUNTER → 2018-12-18 | Outpatient (CLI) | payer MEDICARE, MEDICAID ==
[~2018-12-18] MED LIST changes: +ATOR20TA37 PO; +CARV3.1212 PO; -RIVA10TA PO; +RIVA10TA2 PO
== END | disposition home or self-care (01) ==
LOC: CFH 14:32
PROVIDERS: ATTEND Internal Medicine
DX: Z12.31 Encounter for screening mammogram for malignant neoplasm of breast (principal); Z13.820 Encounter for screening for osteoporosis; N95.9 Unspecified menopausal and perimenopausal disorder
CPT/HCPCS: 77063; 77080; 77067

== ENCOUNTER 2019-01-29 13:52 | Inpatient (IN) | payer MEDICARE, MEDICAID ==
[~2019-01-29] VITALS: Ht 160 cm; Wt 124.9 kg
[2019-01-29 14:29] LABS: BASOPHILS # (AUTO) 0.04 x10^3/uL (0-0.1); BASOPHILS % (AUTO) 1 % (0-1); EOSINOPHILS # (AUTO) 0.23 x10^3/uL (0-0.4); EOSINOPHILS % (AUTO) 4 % (1-7); LYMPHOCYTES # (AUTO) 1.32 x10^3/uL (1-3.4); LYMPHOCYTES % (AUTO) 23 % (22-44); MD NO; MEAN CORPUSCULAR HGB CONC 33.7 g/dL (32.4-35.8); MONOCYTES # (AUTO) 0.59 x10^3/uL (0.2-0.8); MONOCYTES % (AUTO) 10 % (2-9); NEUTROPHILS # (AUTO) 3.63 x10^3/uL (1.8-6.8); NEUTROPHILS % (AUTO) 63 % (42-75); PLATELET COUNT 267 x10^3/uL (130-400); RED BLOOD COUNT 4.37 x10^6/uL (3.82-5.3); RED CELL DISTRIBUTION WIDTH 13.3 % (9.6-15.2)
[2019-01-29 14:38] LABS: ALANINE AMINOTRANSFERASE 19 U/L (12-78); ALBUMIN 3.9 g/dL (3.4-5.0); ANION GAP 7 mmol/L (5-15); CALCIUM 8.7 mg/dL (8.5-10.1); CHLORIDE 106 mmol/L (98-107); CREATININE 1.02 mg/dL (0.55-1.02)
[2019-01-29 14:43] LABS: ALKALINE PHOSPHATASE 93 U/L (45-117); BILIRUBIN,TOTAL 1.1 mg/dL (0.2-1.0); TOTAL PROTEIN 7.5 g/dL (6.4-8.2); TROPONIN I < 0.015 ng/mL (0.000-0.045)
--- NOTE | 2019-01-29 15:05 | NUR ---
PT TO ROOM FROM LOBBY.
[2019-01-29] MEDS ORDERED: FUROSEMIDE 20 MG/2 ML ONE (15:58)
[2019-01-29] MEDS ORDERED: FUROSEMIDE 40 MG/4 ML IV ONE (16:00)
--- NOTE | 2019-01-29 16:07 | NUR ---
IV PLACED, MED GIVEN PER ERP ORDER. PT UPDATED ON POC. PT INFORMED THAT SHE NEEDS TO BE ON MONITOR AND USE BSC. PT INSISTS ON BEING KEPT OFF MONITOR WITH INTERMITTENT VS, STATES "I AM GOING TO GET UP TO BR". TEACHING REINFORCED OF HIGH FALL RISK R/T LASIX AND OTHER. PT STATES SHE WILL PUT DIE SINKER LIGHT IF NEEDING ASSISTANCE.
[2019-01-29] MEDS ORDERED: ONDANSETRON 2MG/ML, 2ML IVPush PRN (16:30)
[2019-01-29] MEDS ORDERED: ONDANSETRON ODT 4 MG PO PRN (16:30)
[2019-01-29] MEDS ORDERED: OXYC30TA66 PO (16:41)
[2019-01-29] MEDS ORDERED: ALBU8.5H8 INH (16:41)
[2019-01-29] MEDS ORDERED: CARV6.252 PO (16:41)
--- NOTE | 2019-01-29 16:52 | NUR ---
PT AMBULATED TO TWICE WITH CANE AND STEADY GAIT. PT INFORMED OF NEED TO GET I&O. PT STILL REFUSING BSC AND MONITOR. PT GIVEN HAT AND ASKED TO PLACE IN TOILET SO STAFF CAN MEASURE URINARY OUTPUT. US AT BS.
[2019-01-29] MEDS ORDERED: HEPARIN 5,000 UNITS/ML, 1ML ONE (17:35)
[2019-01-29] MEDS ORDERED: CARVEDILOL 3.125 MG TABLET ONE (17:35)
[2019-01-29] MEDS ORDERED: POTASSIUM CHLORIDE 20 MEQ TAB.ER.PRT ONE (17:36)
[2019-01-29] MEDS: HEPARIN 5,000 UNITS/ML, 1ML SQ SCH (17:41)
[2019-01-29] MEDS: POTASSIUM CHLORIDE 20 MEQ TAB.ER.PRT PO SCH (17:42)
[2019-01-29] MEDS: CARVEDILOL 3.125 MG TABLET PO SCH (17:42)
--- NOTE | 2019-01-29 17:55 | NUR ---
US COMPLETED NOW, PT UP TO BR.
--- NOTE | 2019-01-29 18:45 | NUR ---
REPORT TO AGUSTINA RN, TRANSFER OF CARE AT THIS TIME.
--- NOTE | 2019-01-29 19:31 | NUR ---
PT REQUESTING THAT MD BE CALLED FOR HER HOME MEDICATION OXYCONTIN, DR RUSH CALLED AND ORDER RECIEVED OK TO CONTINUE PT'S HOME MEDICATION OXYCONTIN LISTED ON PT'S HOME MEDICATION LIST,ORDER PLACED SEE MAR
--- NOTE | 2019-01-29 19:47 | NUR ---
PT'S DAUGHTER ON TELEPHONE, PT GAVE PERMISSION FOR ME TO DISCUSS POC WITH HER. PT AND DAUGHTER REQUESTING I CALL MD BACK AND GET ORDER FOR HER OTHER HOME PAIN MEDICATION, INFORMED PT'S DAUGHTER THAT I HAVE DISCUSSED WITH HER JACETER THAT I WAS GOING TO CALL THE MD REGARDING HER HOME MEDICATION
[2019-01-29] MEDS ORDERED: OXYC20TA42 PO (19:51)
--- NOTE | 2019-01-29 19:59 | NUR ---
DR GONZALEZ CALLED AND DISCUSSED PT'S HOME MEDICATIONS AND PT'S REQUEST FOR OXYCODONE 30 MG TABS TO BE CONTINUED WELL, MD TO REVIEW PT'S CHART AND PLACE ORDER
[2019-01-29] MEDS: ATORVASTATIN 20 MG TABLET PO SCH (20:25)
[2019-01-29] MEDS: OxyconTIN ER 20 MG TAB.ER PO SCH (20:25)
[2019-01-29] MEDS: MONTELUKAST 10 MG TABLET PO SCH (20:25)
--- NOTE | 2019-01-29 20:58 | NUR ---
report given to mayco coulter
--- NOTE | 2019-01-29 21:08 | NUR ---
RECEIVED REPORT FROM AGUSTINA Martinez RN. PT RESTING IN BED IN NAD. PT AWARE OF TRAINING ADMINISTRATOR BEING AWARE OF REVIEWING MEDICATION LIST WITH 30 MG OXYCODONE ON UPDATED LIST PER AGUSTINA BOONE. VSS.
--- NOTE | 2019-01-29 22:18 | NUR ---
PT REPORTING CP PRIOR TO TRANSPORT TO THE FLOOR. THE PROVIDER CARLOS AWARE AND WILL SEE PT PRIOR TO TRANSPORT. STAT EKG DONE.
--- NOTE | 2019-01-29 22:22 | NUR ---
DR. GONZALEZ AT BEDSIDE, ADONIS RN FOR ICU BED 5 AWARE OF PT'S CHEST PAIN AND DELAY WITH DR. GONZALEZ.
[2019-01-29 22:30] VITALS: BP 143/82
[2019-01-29] MEDS ORDERED: MAALOX/HYOSCYAMINE/LIDOCAINE 45 ML BTL PO ONE (22:30)
[2019-01-29 22:50] LABS: TROPONIN I < 0.015 ng/mL (0.000-0.045)
[2019-01-30] VITALS (7 sets, daily range): BP systolic 92–116; BP diastolic 54–72
[2019-01-30] MEDS: HEPARIN 5,000 UNITS/ML, 1ML SQ SCH ×3 (01:16→16:46)
[2019-01-30] MEDS: ACETAMINOPHEN 325 MG TABLET PO PRN ×3 (04:27→22:30)
[2019-01-30] MEDS: CARVEDILOL 3.125 MG TABLET PO SCH (04:28)
[2019-01-30 04:30] LABS: BASOPHILS # (AUTO) 0.03 x10^3/uL (0-0.1); BASOPHILS % (AUTO) 1 % (0-1); EOSINOPHILS # (AUTO) 0.25 x10^3/uL (0-0.4); EOSINOPHILS % (AUTO) 5 % (1-7); LYMPHOCYTES # (AUTO) 1.61 x10^3/uL (1-3.4); LYMPHOCYTES % (AUTO) 29 % (22-44); MD NO; MEAN CORPUSCULAR HEMOGLOBIN 32.5 pg (27.0-34.8); MEAN CORPUSCULAR HGB CONC 34.5 g/dL (32.4-35.8); MEAN CORPUSCULAR VOLUME 94.3 fL (80-100); MEAN PLATELET VOLUME 7.1 fL (7.4-10.4); MONOCYTES # (AUTO) 0.69 x10^3/uL (0.2-0.8); MONOCYTES % (AUTO) 12 % (2-9); NEUTROPHILS # (AUTO) 2.95 x10^3/uL (1.8-6.8); NEUTROPHILS % (AUTO) 53 % (42-75); PLATELET COUNT 226 x10^3/uL (130-400); RED BLOOD COUNT 3.93 x10^6/uL (3.82-5.3); RED CELL DISTRIBUTION WIDTH 13.6 % (9.6-15.2)
[2019-01-30 04:43] LABS: ALANINE AMINOTRANSFERASE 14 U/L (12-78); ALBUMIN 3.4 g/dL (3.4-5.0); ANION GAP 6 mmol/L (5-15); CALCIUM 8.2 mg/dL (8.5-10.1); CHLORIDE 106 mmol/L (98-107); CREATININE 0.94 mg/dL (0.55-1.02)
[2019-01-30 04:48] LABS: ALKALINE PHOSPHATASE 82 U/L (45-117); BILIRUBIN,TOTAL 0.7 mg/dL (0.2-1.0); CHOL/HDL RATIO 1.9; CHOLESTEROL, TOTAL 113 mg/dL (140-239); HDL CHOL % 51 % (28-40); HDL CHOLESTEROL (DIRECT) 58 mg/dL (40-60); LDL CHOLESTEROL,CALCULATED 36 mg/dL (54-169); LDL/HDL RATIO 0.6 (0.5-3.0); TOTAL PROTEIN 6.6 g/dL (6.4-8.2); TRIGLYCERIDES 97 mg/dL (50-200); TROPONIN I < 0.015 ng/mL (0.000-0.045); VLDL CHOLESTEROL 19 mg/dL (0-25)
[2019-01-30] MEDS ORDERED: OxyconTIN ER 40 MG TAB.ER ONE (08:11)
[2019-01-30] MEDS: OxyconTIN ER 20 MG TAB.ER PO SCH ×2 (08:30→19:30)
[2019-01-30] MEDS: POTASSIUM CHLORIDE 20 MEQ TAB.ER.PRT PO SCH ×2 (08:31→16:45)
[2019-01-30] MEDS: PANTOPROZOLE 40MG TABLET PO SCH (08:32)
[2019-01-30] MEDS: ASPIRIN 81 MG TABLET EC PO SCH (08:32)
[2019-01-30] MEDS: LIOTHYRONINE 5 MCG TABLET PO SCH (08:32)
[2019-01-30] MEDS: LORATADINE 10 MG TABLET PO SCH (08:33)
[2019-01-30] MEDS: LEVOTHYROXINE 137 MCG TABLET PO SCH (08:38)
[2019-01-30] MEDS ORDERED: VERAPAMIL ER 180MG TABLET.ER PO SCH (09:00)
[2019-01-30] MEDS ORDERED: FUROSEMIDE 40 MG/4 ML IV SCH (09:00)
[2019-01-30] MEDS ORDERED: OXYC20TA42 PO (13:39)
[2019-01-30] MEDS ORDERED: OXYC15TA PO (13:39)
[2019-01-30] MEDS: OXYcodone IR 5MG TABLET PO SCH ×3 (14:00→21:00)
[2019-01-30] MEDS ORDERED: SODIUM CHLORIDE 0.9%, 500ML IVBOLUS ONE ×2 (14:30→15:00)
[2019-01-30] MEDS ORDERED: OMNIPAQUE 350 MG/ML, 100ML BOTTLE ONE (16:05)
[2019-01-30] MEDS ORDERED: CARVEDILOL 3.125 MG TABLET PO SCH (18:00)
[2019-01-30] MEDS: ENOXAPARIN 120MG/0.8ML SQ SCH (22:30)
[2019-01-30] MEDS: ATORVASTATIN 20 MG TABLET PO SCH (22:30)
[2019-01-30] MEDS: MONTELUKAST 10 MG TABLET PO SCH (22:30)
[2019-01-31 00:46] VITALS: BP 120/65
[2019-01-31] MEDS: LEVOTHYROXINE 137 MCG TABLET PO SCH (05:36)
[2019-01-31 07:20] VITALS: BP 139/69
[2019-01-31] MEDS: POTASSIUM CHLORIDE 20 MEQ TAB.ER.PRT PO SCH ×2 (09:20→17:58)
[2019-01-31] MEDS: ASPIRIN 81 MG TABLET EC PO SCH (09:20)
[2019-01-31] MEDS: LIOTHYRONINE 5 MCG TABLET PO SCH (09:20)
[2019-01-31] MEDS: OxyconTIN ER 20 MG TAB.ER PO SCH ×2 (09:20→20:25)
[2019-01-31] MEDS: PANTOPROZOLE 40MG TABLET PO SCH (09:20)
[2019-01-31] MEDS: LORATADINE 10 MG TABLET PO SCH (09:20)
[2019-01-31] MEDS: ENOXAPARIN 120MG/0.8ML SQ SCH ×2 (09:31→20:25)
[2019-01-31 11:10] VITALS: BP 113/71
[2019-01-31] MEDS: OXYcodone IR 5MG TABLET PO SCH ×3 (11:16→23:44)
[2019-01-31] MEDS: FUROSEMIDE 20 MG TABLET PO SCH (11:16)
[2019-01-31] MEDS: SENNA/DOCUSATE TABLET PO SCH (12:00)
[2019-01-31] MEDS ORDERED: POLYETHYLENE GLYCOL 17 GM PACKET PO PRN (12:00)
[2019-01-31 14:00] VITALS: BP 132/81
[2019-01-31 19:58] VITALS: BP 139/76
[2019-01-31] MEDS: ATORVASTATIN 20 MG TABLET PO SCH (20:24)
[2019-01-31] MEDS: MONTELUKAST 10 MG TABLET PO SCH (20:25)
[2019-01-31] MEDS: ACETAMINOPHEN 325 MG TABLET PO PRN (20:25)
[2019-02-01 01:13] VITALS: BP 144/82
[2019-02-01] MEDS ORDERED: NITROGLYCERIN 0.4 MG BOTTLE (25 TABS) SL ONE (01:24)
[2019-02-01] MEDS ORDERED: NITROGLYCERIN 0.4 MG BOTTLE (25 TABS) SL PRN (01:30)
[2019-02-01] MEDS ORDERED: NITROGLYCERIN 0.4 MG/SPRAY SL PRN (01:30)
[2019-02-01 01:39] VITALS: BP 117/70
[2019-02-01 02:58] LABS: ANION GAP 7 mmol/L (5-15); CALCIUM 8.5 mg/dL (8.5-10.1); CHLORIDE 106 mmol/L (98-107)
[2019-02-01 03:02] LABS: TROPONIN I < 0.015 ng/mL (0.000-0.045)
[2019-02-01] MEDS: LEVOTHYROXINE 137 MCG TABLET PO SCH (06:22)
[2019-02-01 07:05] VITALS: BP 118/74
[2019-02-01] MEDS: LIOTHYRONINE 5 MCG TABLET PO SCH (08:26)
[2019-02-01] MEDS: POTASSIUM CHLORIDE 20 MEQ TAB.ER.PRT PO SCH ×2 (08:26→16:06)
[2019-02-01] MEDS: LORATADINE 10 MG TABLET PO SCH (08:26)
[2019-02-01] MEDS: FUROSEMIDE 20 MG TABLET PO SCH (08:29)
[2019-02-01] MEDS: ASPIRIN 81 MG TABLET EC PO SCH (08:29)
[2019-02-01] MEDS: PANTOPROZOLE 40MG TABLET PO SCH (08:30)
[2019-02-01] MEDS: OxyconTIN ER 20 MG TAB.ER PO SCH ×2 (08:30→20:26)
[2019-02-01] MEDS: SENNA/DOCUSATE TABLET PO SCH (08:30)
[2019-02-01] MEDS: ENOXAPARIN 120MG/0.8ML SQ SCH (08:31)
[2019-02-01 09:05] LABS: TROPONIN I < 0.015 ng/mL (0.000-0.045)
[2019-02-01] MEDS: OXYcodone IR 5MG TABLET PO SCH ×2 (09:39→16:06)
[2019-02-01 14:45] VITALS: BP 131/84
[2019-02-01 18:36] VITALS: BP 134/84
[2019-02-01] MEDS: ATORVASTATIN 20 MG TABLET PO SCH (20:25)
[2019-02-01] MEDS: APIXABAN 5 MG TABLET PO SCH (20:25)
[2019-02-01] MEDS: MONTELUKAST 10 MG TABLET PO SCH (20:26)
[2019-02-02] MEDS: OXYcodone IR 5MG TABLET PO SCH ×2 (00:17→08:10)
[2019-02-02 00:39] VITALS: BP 147/86
[2019-02-02 05:32] LABS: ALBUMIN 3.2 g/dL (3.4-5.0); CHLORIDE 108 mmol/L (98-107)
[2019-02-02 05:33] LABS: ANION GAP 7 mmol/L (5-15); CALCIUM 8.7 mg/dL (8.5-10.1)
[2019-02-02] MEDS: LEVOTHYROXINE 137 MCG TABLET PO SCH (05:39)
[2019-02-02 07:15] VITALS: BP 121/76
[2019-02-02] MEDS ORDERED: OxyconTIN ER 10 MG TAB.ER ONE (08:42)
[2019-02-02] MEDS: LORATADINE 10 MG TABLET PO SCH (09:07)
[2019-02-02] MEDS: LIOTHYRONINE 5 MCG TABLET PO SCH (09:07)
[2019-02-02] MEDS: OxyconTIN ER 20 MG TAB.ER PO SCH (09:07)
[2019-02-02] MEDS: SENNA/DOCUSATE TABLET PO SCH (09:07)
[2019-02-02] MEDS: POTASSIUM CHLORIDE 20 MEQ TAB.ER.PRT PO SCH (09:08)
[2019-02-02] MEDS: ASPIRIN 81 MG TABLET EC PO SCH (09:08)
[2019-02-02] MEDS: FUROSEMIDE 20 MG TABLET PO SCH (09:08)
[2019-02-02] MEDS: PANTOPROZOLE 40MG TABLET PO SCH (09:08)
[2019-02-02] MEDS: APIXABAN 5 MG TABLET PO SCH (09:09)
[2019-02-02] MEDS ORDERED: APIX5TAB PO ×2 (10:05)
== END 2019-02-02 14:34 | disposition home or self-care (01) | DRG 299 ==
LOC: ED 15:42 → EDIP 15:45 → ICU 22:35 → 5SO 01-30 17:02
PROVIDERS: ADMIT Internal Medicine; ATTEND Internal Medicine
DX: I82.432 Acute embolism and thrombosis of left popliteal vein (principal); I50.33 Acute on chronic diastolic (congestive) heart failure; I11.0 Hypertensive heart disease with heart failure; I25.10 Atherosclerotic heart disease of native coronary artery without angina pectoris; Z96.653 Presence of artificial knee joint, bilateral; M19.90 Unspecified osteoarthritis, unspecified site; K21.9 Gastro-esophageal reflux disease without esophagitis; I71.4 Abdominal aortic aneurysm, without rupture; G89.29 Other chronic pain; E89.0 Postprocedural hypothyroidism; G47.30 Sleep apnea, unspecified; J45.909 Unspecified asthma, uncomplicated; Z86.718 Personal history of other venous thrombosis and embolism; Z90.710 Acquired absence of both cervix and uterus; Z82.0 Family history of epilepsy and other diseases of the nervous system; Z90.49 Acquired absence of other specified parts of digestive tract
CPT/HCPCS: 36415; 71045; 71046; 71275; 74018; 80048; 80053; 80061; 82040; 83880; 84443; 84484; 85025; 87081; 93005; 93306; 93970; 96374; G0378; J1644; J1650; J1940; Q9967; J7040

== ENCOUNTER → 2019-03-03 | Outpatient (CLI) | payer MEDICARE, MEDICAID ==
[~2019-03-03] MED LIST changes: +ALBU8.5H8 INH; +APIX5TAB PO; +CARV6.252 PO; +OXYC20TA42 PO; +OXYC30TA66 PO
== END | disposition home or self-care (01) ==
LOC: CFH 13:11
PROVIDERS: ATTEND Internal Medicine Cardiovascular Disease
DX: R60.0 Localized edema (principal); M79.662 Pain in left lower leg; M79.661 Pain in right lower leg; Z86.718 Personal history of other venous thrombosis and embolism
CPT/HCPCS: 93970

== ENCOUNTER 2019-09-23 09:42 | Outpatient (CLI) | payer MEDICARE, MEDICAID ==
[~2019-09-23 09:42] MED LIST changes: +LIOT5TAB11 PO; -LIOT5TAB3 PO
== END 2019-09-23 23:59 | disposition home or self-care (01) ==
LOC: CVU 09:42
PROVIDERS: ATTEND Internal Medicine Cardiovascular Disease
DX: I08.2 Rheumatic disorders of both aortic and tricuspid valves (principal); I31.3 Pericardial effusion (noninflammatory); I10 Essential (primary) hypertension; I71.2 Thoracic aortic aneurysm, without rupture
CPT/HCPCS: 93306

== ENCOUNTER → 2019-09-27 | Outpatient (CLI) | payer MEDICARE, MEDICAID ==
[2019-09-27 12:26] LABS: ANION GAP 3 mmol/L (5-15); CALCIUM 8.5 mg/dL (8.5-10.1); CHLORIDE 107 mmol/L (98-107); CREATININE 0.92 mg/dL (0.55-1.02)
== END | disposition home or self-care (01) ==
LOC: LAB 11:34
PROVIDERS: ATTEND Internal Medicine Cardiovascular Disease
DX: E03.9 Hypothyroidism, unspecified (principal); E78.00 Pure hypercholesterolemia, unspecified; I71.2 Thoracic aortic aneurysm, without rupture; Z88.0 Allergy status to penicillin; Z88.5 Allergy status to narcotic agent; Z88.6 Allergy status to analgesic agent; Z87.898 Personal history of other specified conditions; Z91.018 Allergy to other foods; Z85.850 Personal history of malignant neoplasm of thyroid
CPT/HCPCS: 36415; 80048

== ENCOUNTER → 2020-11-02 | Outpatient (CLI) | payer MEDICARE, MEDICAID ==
[~2020-11-02] MED LIST changes: +LORA-59 PO; -LORA10TA62 PO; -MONT10TA9 PO; +MONT10TA96 PO; +ONDA-89 PO; -ONDA4TAB12 PO; -OXYC15TA PO; +OXYC15TA3 PO; -OXYC30TA PO; +OXYC30TA3 PO; -PANT20TA3 PO; +PANT20TA4 PO
== END | disposition home or self-care (01) ==
LOC: WOUND 13:36
PROVIDERS: ATTEND Nurse Practitioner Family
DX: I87.332 Chronic venous hypertension (idiopathic) with ulcer and inflammation of left lower extremity (principal); L97.821 Non-pressure chronic ulcer of other part of left lower leg limited to breakdown of skin; L03.116 Cellulitis of left lower limb; I82.509 Chronic embolism and thrombosis of unspecified deep veins of unspecified lower extremity; Q05.4 Unspecified spina bifida with hydrocephalus; I73.9 Peripheral vascular disease, unspecified; E78.5 Hyperlipidemia, unspecified; E03.9 Hypothyroidism, unspecified; I11.0 Hypertensive heart disease with heart failure; I50.33 Acute on chronic diastolic (congestive) heart failure; E66.01 Morbid (severe) obesity due to excess calories; Z68.42 Body mass index [BMI] 45.0-49.9, adult; Z88.0 Allergy status to penicillin; Z79.01 Long term (current) use of anticoagulants
CPT/HCPCS: G0463

== ENCOUNTER → 2020-11-18 | Outpatient (CLI) | payer MEDICARE, MEDICAID | END | disposition home or self-care (01) | LOC: CVU 10:23 | PROVIDERS: ATTEND Internal Medicine Cardiovascular Disease | DX: I11.0 Hypertensive heart disease with heart failure (principal); I50.32 Chronic diastolic (congestive) heart failure; I34.0 Nonrheumatic mitral (valve) insufficiency | CPT/HCPCS: 93306 ==